=== PATIENT | female | born 1960 | race Caucasian/White ===

== ENCOUNTER 2024-12-20 17:04 | Emergency (ER) | payer BC, SELFPAY ==
[2024-12-20 17:07] VITALS: BP 154/94
--- NOTE | 2024-12-20 19:13 | ED.GENMED ---
History of Present Illness
General
Chief Complaint: Skin Problem
Time Seen by Provider: 12/20/24 17:46
History of Present Illness
History of Present Illness:
64-year-old female presents the emergency for a paronychia to the left ring finger that has been ongoing for the past several days
Past History
Past History
ED Past Medical History: None
ED Past Surgical History: None
Social History
Tobacco: Non-smoker
Alcohol: None
Drug: None
Personal:
Living: with family
Review of Systems
Review of Systems
Allergies reviewed?: Yes
All Other Systems: ROS reviewed and negative except as documented in HPI and ROS
Phy Exam
Physical Exam
Physical Exam:
GEN: Well appearing, NAD, WDWN
HEENT: Oral mucosa moist, no scleral icterus
Cardiac: Regular rate
Lung: No respiratory distress, no tachypnea
MSK: No gross deformity or injuries paronychia to the left ring finger ulnar aspect
Skin: Good color, no pallor or jaundice, no rashes
Neuro: AO x3, moves all extremities freely
Psych: Calm, cooperative
Course
Vital Signs
Initial and Last Documented VS:
Initial Vital Signs
Temp Pulse Resp BP Pulse Ox
97.9 F 58 16 154/94 99
12/20/24 17:07 12/20/24 17:07 12/20/24 17:07 12/20/24 17:07 12/20/24 17:07
Last Documented Vital Signs
Temp Pulse Resp BP Pulse Ox
97.9 F 58 16 154/94 99
12/20/24 17:07 12/20/24 17:07 12/20/24 17:07 12/20/24 17:07 12/20/24 17:07
Procedures
Incision/Drainage/Joint Aspiration
Paronychia:
Anethesia: 1% Lidocaine
Type of procedure: incise and drain
Nature of site: abscess
Description of abscess: less than 3cm
Loculations broken up: No
How much fluid was obtained?: scant amount
Fluid description: purulent and bloody
Treatment: left open for drainage
MDM/Problems Addressed
MDM/Problems Addressed:
Will start patient on empiric antibiotics, supportive care
*Critical Care Note
Total Time (30-74mins, 75-104mins- exclusive of procedures): Not Applicable
ED Attending Note
-
Portions of this chart may have been created with voice recognition software.� Occasional wrong word or��sound alike� substitutions may have occurred due to the inherent limitations of voice recognition software.
Discharge Plan
Departure
Patient Disposition: Home (Routine Discharge)
Date of Disposition: 12/20/24
Time of Disposition: 19:13
Patient with high blood pressure during this ER visit?: No
Discharge Problem:
Paronychia
Instructions: Paronychia - ED discharge instructions
Prescriptions:
New
cephalexin 500 mg capsule
500 mg PO Q8H 7 Days Qty: 21 0RF
No Action
loratadine [Claritin] 10 mg Tablet
10 mg PO DAILY
ondansetron 4 mg tablet,disintegrating
4 mg PO Q8H PRN (Reason: nausea and vomiting) Qty: 10 0RF
ibuprofen 600 mg tablet
600 mg PO Q6H PRN (Reason: Pain) Qty: 14 0RF
acetaminophen [acetaminophen] 325 mg tablet
650 mg PO Q6HPRN PRN (Reason: mild pain) Qty: 14 0RF
tramadol 50 mg tablet
25 mg PO Q6HPRN PRN (Reason: severe pain/breakthrough pain) Qty: 8 0RF
Referrals:
Curt Morales MD [Family Provider] -
Interventions
Interventions:
*Risk Screen - Suicide Last Done: 12/20/24 17:07
*General Assessment Last Done: 12/20/24 17:32
*Neglect/Abuse Screening Last Done: 12/20/24 17:07
*Nursing Disposition Last Done: 12/20/24 19:34
ED-Skin Assessment Last Done: 12/20/24 17:31
Discharge Date and Time
Discharge Date/Time: 12/20/24 19:34
Print Language: THAI
== END 2024-12-20 19:34 | disposition home or self-care (01) ==
LOC: EMR 17:04
PROVIDERS: EMERGENCY PHYSICIAN Emergency Medicine; FAMILY PHYSICIAN Family Medicine
DX: L03.012 Cellulitis of left finger (principal)
CPT/HCPCS: 10060; 99283

== ENCOUNTER → 2025-08-25 08:54 | Outpatient (REF) | payer BC, SELFPAY ==
[2025-08-25 10:31] LABS: Hematocrit 41.1 % (37.0-47.0); Hemoglobin 13.4 g/dL (12.0-16.0); Mean Corp Hgb Conc. 32.6 g/dL (33.0-37.0); Mean Corpuscular Volume 84.0 fL (81.0-99.0); Nucleated Red Blood Cells % 0 %; Platelet Count 290 10^3/uL (130-400); Red Cell Dist. Width 13.1 % (11.5-14.5)
[2025-08-25 10:59] LABS: Blood Urea Nitrogen 19 mg/dl (7-17); Calcium 9.8 mg/dl (8.4-10.2); Carbon Dioxide 23 mmol/L (22-30); Chloride 105 mmol/L (98-107); Glucose 90 mg/dl (70-99); Potassium 4.5 mmol/L (3.5-5.1); Sodium 137 mmol/L (135-145); eGFR > 60.00
== END ==
LOC: RCS 08:54
PROVIDERS: ATTENDING PHYSICIAN Specialist; FAMILY PHYSICIAN Family Medicine
DX: Z01.818 Encounter for other preprocedural examination (principal)
CPT/HCPCS: 36415; 80048; 85025; 93005